=== PATIENT | male | born 1975 | race Two or more races ===

== ENCOUNTER 2017-09-20 19:29 | Emergency (ER) | payer MEDICAID ==
[~2017-09-20] VITALS: Ht 170.2 cm; Wt 79.4 kg
[2017-09-20 19:39] VITALS: BP 120/60
== END 2017-09-20 21:44 | disposition home or self-care (01) ==
LOC: ER 19:29
DX: N20.0 Calculus of kidney (principal)
CPT/HCPCS: 74176

== ENCOUNTER 2018-09-21 00:04 | Emergency (ER) | payer MEDICAID, OTHER ==
[~2018-09-21] VITALS: Ht 170.2 cm; Wt 79.4 kg
[2018-09-21 00:13] VITALS: BP 113/72
== END 2018-09-21 03:03 | disposition left against medical advice (07) ==
LOC: ER 00:04 → MERGE 00:04 → ER 03:03
DX: K08.89 Other specified disorders of teeth and supporting structures (principal); Z53.21 Procedure and treatment not carried out due to patient leaving prior to being seen by health care provider